=== PATIENT | female | born 1940 | race Caucasian/White ===

== ENCOUNTER → 2018-04-06 | Outpatient (CLI) | payer MEDICARE, OTHER ==
[~2018-04-06] MED LIST: AMLO5 PO; ATEN50 PO; Aspir 8181 MG PO; HYDCHL25 PO; LEVSOD100 PO; LEVSOD125 PO; LOSA50 PO; METO50 PO; Omeprazole20 M1 PO; SULTRIDS PO; VALA500 PO
[2018-04-06 17:32] LABS: Protein, Urine Random 477.3 mg/dL (0.0-11.9)
== END ==
LOC: LAB SHORT 16:49 → LAB 16:49
PROVIDERS: Internal Medicine
DX: N18.3 Chronic kidney disease, stage 3 (moderate) (principal)
CPT/HCPCS: 82570; 84156

== ENCOUNTER → 2018-06-06 | Outpatient (CLI) | payer MEDICARE, OTHER ==
[2018-06-06 14:33] LABS: Protein, Urine Quantitative 103.7 mg/dL (0.0-11.9)
[2018-06-06 14:44] LABS: Creatinine Urine 30.1 mg/dL (27.00-270.00)
== END | disposition home or self-care (01) ==
LOC: LAB 10:36 → LAB SHORT 10:36
PROVIDERS: Internal Medicine
DX: N18.3 Chronic kidney disease, stage 3 (moderate) (principal)
CPT/HCPCS: 81050; 82570; 84156

== ENCOUNTER → 2018-08-19 | Outpatient (CLI) | payer MEDICARE, OTHER ==
[~2018-08-19] MED LIST changes: +ATOR80 PO; +CARV3.125 PO; +CLOP75 PO
[2018-08-19 17:37] LABS: Protein, Urine Random 521.6 mg/dL (0.0-11.9)
== END | disposition home or self-care (01) ==
LOC: LAB 14:00 → LAB SHORT 14:00
PROVIDERS: Internal Medicine
DX: R80.8 Other proteinuria (principal)
CPT/HCPCS: 82570; 84156

== ENCOUNTER 2018-10-23 17:19 | Observation (INO) | payer MEDICARE, OTHER ==
[~2018-10-23] VITALS: Ht 160 cm; Wt 68.4 kg
[~2018-10-23 17:19] MED LIST changes: -ATOR80 PO; -CARV3.125 PO; -CLOP75 PO
[2018-10-23 18:01] LABS: BASOPHILS ABSOLUTE AUTO 0.08 K/mm3 (0.00-0.23); BASOPHILS PERCENT AUTO 1 % (0-2); EOSINOPHILS ABSOLUTE AUTO 0.28 K/mm3 (0.00-0.68); EOSINOPHILS PERCENT AUTO 4 % (0-6); Hematocrit 45.5 % (33.0-51.0); Hemoglobin 14.5 g/dL (11.5-16.0); IMMATURE GRAN ABSOLUTE AUTO 0.02 K/mm3 (0.00-0.10); IMMATURE GRAN PERCENT AUTO 0 % (0-1); LYMPHOCYTES ABSOLUTE AUTO 2.12 K/mm3 (0.84-5.20); LYMPHOCYTES PERCENT AUTO 26 % (21-46); MONOCYTES ABSOLUTE AUTO 0.82 K/mm3 (0.16-1.47); MONOCYTES PERCENT AUTO 10 % (4-13); Mean Corpuscular HGB 27.2 pg (26.0-34.0); Mean Corpuscular HGB Conc 31.9 g/dL (31.5-36.5); Mean Corpuscular Volume 85 fL (80-100); Mean Platelet Volume 10.7 fL (9.1-12.4); NEUTROPHILS ABSOLUTE AUTO 4.73 K/mm3 (1.96-9.15); NEUTROPHILS PERCENT AUTO 59 % (41-73); Platelet Count 314 K/mm3 (150-400); RDW Coefficient Variation 14.6 % (11.7-14.2); RDW Standard Deviation 45.1 fL (35.1-46.3); Red Blood Cell Count 5.34 M/mm3 (3.80-5.20); White Blood Cell Count 8.05 K/mm3 (4.00-11.30)
[2018-10-23 18:33] LABS: Albumin, Blood 3.6 g/dL (3.4-5.0); Albumin/Globulin Ratio 0.9 (0.8-1.8); Bilirubin, Total 0.4 mg/dL (0.1-1.0); Bun/Creatinine Ratio 16.2 (12.0-20.0); Calcium, Blood 9.6 mg/dL (8.5-10.1); Creatinine, Blood 1.17 mg/dL (0.40-1.00); Potassium, Blood 4.1 mmol/L (3.5-5.5); Total Protein, Blood 7.6 g/dL (6.4-8.2)
[2018-10-23] MEDS ORDERED: CARV3.125 PO (20:22)
--- NOTE | 2018-10-24 04:48 | NUR ---
SHIFT SUMMARY PT NEW ED ADMIT THIS EVENING. PT HAS EXPRESSIVE APHASIA AND HAS A DIFFICULT TIME FINDING HER WORDS. PT HAS HAD TWO STROKES IN THE PAST AND HAS RIGHT SIDED WEAKNESS FROM THIS. PT IS ABLE TO AMBULATE W/ 1 PERSON ASSIST AND A FWW. NO NEW DEFICITS AT THIS TIME EXCEPT THE APHASIA. PT IS PLEASANT AND COOPERATIVE. SLEPT WELL AFTER ADMISSION. PT REPORTED THAT SHE HAD A HEADACHE IN THE ER THAT HAD RESOLVED BY THE TIME SHE GOT TO THE FLOOR. DENIES ANY OTHER PAIN OR DISCOMFORT. MRI SCREENING FORM FILLED OUT AND FAXED. WILL CONTINUE TO MONITOR AND REPORT TO DAY RN.
--- NOTE | 2018-10-24 16:05 | NUR ---
PATIENT HAS ASKED MULTIPLE TIMES ABOUT BEING DISCHARGED "NOTHING IS BEING DONE." REFUSES O.T. REFUSES SPEECH EVAL AND STS "SHE SHOULD BE A USED GROUND WIRER." AFTER DOES EVAL USES DERROGATORY WORD TO DESCRIBE HIM TO THIS RN. REQUESTS PATIENT ADVOCATE, АЛЕКСАНДР, WHO IS IN AT THIS TIME TALKING TO HIM. DR. RODRIGEZ AWARE DOES NOT CARE IF WANTS TO DO SURGERY HE WILL NOT OK IT HE WANTS A SECOND OPINION. PER DR. RODRIGEZ WILL "WRITE ORDERS IN 1/2 HOUR." PATIENT UNSTEADY ON FEET WITH ONE PERSON ASSIST TO BATHROOM. WHEN ASSISTED TO BATHROOM STS " WHY ARE YOU WALKING LIKE THAT, YOU DIDN'T AT HOME." THOR.
[2018-10-24] MEDS ORDERED: ATOR80 PO (17:36)
[2018-10-24] MEDS ORDERED: CLOP75 PO (17:36)
--- NOTE | 2018-10-24 17:53 | NUR ---
REVIEW D'C W/S.O. AWARE TO SANFORIZING MACHINE OPERATOR RX X 2 AT [facility].AWARE EVEREEN WILL CALL THEM TO SET UP FOLLOW UP APPT. AWARE CAN RETURN TO E.R. IF ANY PROBLEMS. SIGNED MEDICAL RECORDS RELEASE AND HAS IMAGING RESULTS. ANSWER ALL QUESTIONS. IN W/C W/CD STORAGE AND MATERIALS MAKE UP HELPER AND S.O.
== END 2018-10-24 17:47 | disposition home or self-care (01) ==
LOC: ER 17:19 → MEDS 17:20 → ICUW 17:20 → MEDS 22:40
PROVIDERS: Emergency Medicine; ADMIT Student in an Organized Health Care Education/Training Program
DX: R47.01 Aphasia (principal); I65.23 Occlusion and stenosis of bilateral carotid arteries; I65.02 Occlusion and stenosis of left vertebral artery; I69.351 Hemiplegia and hemiparesis following cerebral infarction affecting right dominant side; I12.9 Hypertensive chronic kidney disease with stage 1 through stage 4 chronic kidney disease, or unspecified chronic kidney disease; N18.3 Chronic kidney disease, stage 3 (moderate); E03.9 Hypothyroidism, unspecified; E78.5 Hyperlipidemia, unspecified; Z87.891 Personal history of nicotine dependence; Z79.899 Other long term (current) drug therapy; Z79.82 Long term (current) use of aspirin
CPT/HCPCS: 36415; 70450; 70496; 70498; 70551; 80053; 85025; 92523; 93005; 93010; 93306; 96372; 97116; 97162; 99285-25; A9270; G0378; J1650; Q9967

== ENCOUNTER 2019-04-17 09:45 | Inpatient (IN) | payer MEDICARE, OTHER ==
[~2019-04-17] VITALS: Ht 162.6 cm; Wt 63.5 kg
[~2019-04-17 09:45] MED LIST changes: +ATOR80 PO; +CARV3.125 PO; +CLOP75 PO
[2019-04-17] MEDS ORDERED: CYCL10 PO (10:07)
[2019-04-17] MEDS ORDERED: LANS15EC PO (10:07)
[2019-04-17] MEDS ORDERED: ACET325 PO (10:08)
[2019-04-17] MEDS ORDERED: TRAM50 PO (10:08)
[2019-04-17 10:35] LABS: BASOPHILS ABSOLUTE AUTO 0.06 K/mm3 (0.00-0.23); BASOPHILS PERCENT AUTO 1 % (0-2); EOSINOPHILS ABSOLUTE AUTO 0.13 K/mm3 (0.00-0.68); EOSINOPHILS PERCENT AUTO 1 % (0-6); Hematocrit 36.8 % (33.0-51.0); Hemoglobin 11.8 g/dL (11.5-16.0); IMMATURE GRAN ABSOLUTE AUTO 0.05 K/mm3 (0.00-0.10); IMMATURE GRAN PERCENT AUTO 1 % (0-1); LYMPHOCYTES PERCENT AUTO 16 % (21-46); MONOCYTES ABSOLUTE AUTO 1.03 K/mm3 (0.16-1.47); MONOCYTES PERCENT AUTO 9 % (4-13); Mean Corpuscular HGB 26.3 pg (26.0-34.0); Mean Corpuscular HGB Conc 32.1 g/dL (31.5-36.5); Mean Corpuscular Volume 82 fL (80-100); NEUTROPHILS ABSOLUTE AUTO 7.93 K/mm3 (1.96-9.15); NEUTROPHILS PERCENT AUTO 72 % (41-73); Platelet Count 733 K/mm3 (150-400); RDW Standard Deviation 41.1 fL (35.1-46.3); Red Blood Cell Count 4.48 M/mm3 (3.80-5.20)
[2019-04-17 10:54] LABS: Albumin, Blood 2.3 g/dL (3.4-5.0); Bilirubin, Total 0.3 mg/dL (0.1-1.0); Bun/Creatinine Ratio 17.1 (12.0-20.0); Calcium, Blood 9.1 mg/dL (8.5-10.1); Creatinine, Blood 1.4 mg/dL (0.40-1.00); Potassium, Blood 3.7 mmol/L (3.5-5.5)
[2019-04-17 10:56] LABS: Albumin/Globulin Ratio 0.6 (0.8-1.8); Globulin, Blood 3.9 g/dL (2.2-4.0); Total Protein, Blood 6.2 g/dL (6.4-8.2)
[2019-04-17 11:25] LABS: Source, Urine Catheter
[2019-04-17 11:48] LABS: Bilirubin, Urine Neg (Neg); Blood, Urine Neg (Neg); Glucose Qualitative, Urine Neg (Neg); Ketones, Urine Neg (Neg); Leukocyte Esterase, Urine Neg (Neg); Nitrite, Urine Neg (Neg); Protein, Urine 3+ (Neg); Specific Gravity, Urine 1.025 (1.003-1.022); Urobilinogen, Urine NORM (Normal)
[2019-04-17 12:07] LABS: Appearance, Urine Hazy (Clear); Color, Urine Yellow (P-Yellow)
[2019-04-17 12:09] LABS: Amorphous Mod (0-Heavy); Bacteria Many /hpf; Red Blood Cells, Urine 0-2 /hpf (0-2); Squamous Epithelial Cells Few /hpf (Few)
[2019-04-17] MEDS ORDERED: Cyclobenzaprine5 MG PO (13:03)
--- NOTE | 2019-04-17 15:34 | NUR ---
PT ADMITTED. PT ADMITTED AT 1515. FOAM PLACED TO BOTTOM WOUND. BREIF APPLIED. DNR BND PLACED & VERIFIED BY CRUZ WEEKS RN. PT REPOSITIONED. AWAITING FAMILY TO ARRIVE TO START PT ADMISSION.
--- NOTE | 2019-04-17 17:39 | NUR ---
SHIFT SUMMARY PICS TAKEN OF SACRAL & R HIP WOUNDS. FOAMS PLACED TO R HIP, SACRUM, AND BILATERAL HEELS. FAMILY AT BEDSIDE. PT LETHARGIC, BUT WAKES WHEN REPOSITIONED. NO NEURO CHANGE AT THIS TIME. PT NPO AT THIS TIME ORAL CARE COMPLETED BY THIS RN AND BY FAMILY. NO OTHER CHANGES IN ASSESSMENT SINCE ADMIT. VSS. WILL CONTINUE TO MONITOR UNTIL TURNOVER IS COMPLETE.
--- NOTE | 2019-04-17 20:44 | NUR ---
BLADDER SCAN/CHI PLACED 14F CHI PLACED FOR BLADDER SCAN OF 907ML IN BLADDER & LOWER ABD TENDER TO PALPATION. URINE SAMPLE COLLECTED & SENT PER PROTOCAL. 500ML OUT @THIS TIME WILL CONTINUE TO MONITOR PT. CALL LIGHT IN REACH.
[2019-04-17 21:12] LABS: Source, Urine Catheter
[2019-04-17 21:15] LABS: Bilirubin, Urine Neg (Neg); Blood, Urine Neg (Neg); Glucose Qualitative, Urine Neg (Neg); Ketones, Urine Neg (Neg); Leukocyte Esterase, Urine Neg (Neg); Nitrite, Urine Neg (Neg); Protein, Urine 4+ (Neg); Specific Gravity, Urine 1.025 (1.003-1.022); Urobilinogen, Urine NORM (Normal)
[2019-04-17 21:22] LABS: Appearance, Urine Hazy (Clear); Color, Urine Yellow (P-Yellow)
[2019-04-17 21:23] LABS: Amorphous Light (0-Heavy); Bacteria Many /hpf; Red Blood Cells, Urine 0-2 /hpf (0-2); Squamous Epithelial Cells Rare /hpf (Few); White Blood Cells, Urine 0-2 /hpf (0-5)
[2019-04-18 05:15] LABS: BASOPHILS ABSOLUTE AUTO 0.06 K/mm3 (0.00-0.23); BASOPHILS PERCENT AUTO 1 % (0-2); EOSINOPHILS ABSOLUTE AUTO 0.09 K/mm3 (0.00-0.68); EOSINOPHILS PERCENT AUTO 1 % (0-6); Hematocrit 35.8 % (33.0-51.0); Hemoglobin 11.2 g/dL (11.5-16.0); IMMATURE GRAN ABSOLUTE AUTO 0.05 K/mm3 (0.00-0.10); IMMATURE GRAN PERCENT AUTO 1 % (0-1); LYMPHOCYTES PERCENT AUTO 13 % (21-46); MONOCYTES ABSOLUTE AUTO 0.65 K/mm3 (0.16-1.47); MONOCYTES PERCENT AUTO 6 % (4-13); Mean Corpuscular HGB 25.6 pg (26.0-34.0); Mean Corpuscular HGB Conc 31.3 g/dL (31.5-36.5); Mean Corpuscular Volume 82 fL (80-100); Mean Platelet Volume 10.2 fL (9.1-12.4); NEUTROPHILS ABSOLUTE AUTO 8.28 K/mm3 (1.96-9.15); NEUTROPHILS PERCENT AUTO 79 % (41-73); Platelet Count 738 K/mm3 (150-400); RDW Coefficient Variation 14.1 % (11.7-14.2); RDW Standard Deviation 41.7 fL (35.1-46.3); Red Blood Cell Count 4.37 M/mm3 (3.80-5.20); White Blood Cell Count 10.43 K/mm3 (4.00-11.30)
[2019-04-18 05:39] LABS: Albumin, Blood 2.3 g/dL (3.4-5.0); Albumin/Globulin Ratio 0.6 (0.8-1.8); Bilirubin, Total 0.3 mg/dL (0.1-1.0); Creatinine, Blood 1.28 mg/dL (0.40-1.00); Globulin, Blood 3.8 g/dL (2.2-4.0); Potassium, Blood 3.8 mmol/L (3.5-5.5); Total Protein, Blood 6.1 g/dL (6.4-8.2)
--- NOTE | 2019-04-18 06:26 | NUR ---
SHIFT SUMMARY PT ALERT TO VERBAL STIMULI. ABLE TO ANSWER YES/NO QUESTIONS & CAN STATE NAME. DAUGHTER @BEDSIDE T/O NIGHT STATES PT HAS IMPROVED IN MENTATION SINCE YESTERDAY & IS MORE VERBAL. PT HAS EXPRESSIVE APHASIA. VSS. TELE IN PLACE RUNNING ST c PVC'S HR 101. NO S/S OF DYSPNEA OR N/V. MANY NON-VERBAL S/S OF PAIN INCLUDING: MOANING, GRIMACING, RESTLESS LEGS & STATES "PAIN, PAIN." RECIEVED ORDER FOR FENTANYL FROM DR FONSECA & PT HAS BEEN MEDICATED 2X W/MILD RELIEF, STILL MOANING & STATING PAIN THIS AM BUT UNABLE TO STATE WHERE PAIN IS LOCATED, REPOSITIONED & I WILL PASS INFO TO ONCOMING NURSE. CHI PLACED LAST NIGHT, READ PREVIOUS NOTE, IS PATENT & DRAINING DARK ORANGE URINE. PT NPO PER ORDERS. NS RUNNING @75ML/HR. CALL LIGHT IN REACH. WCTM.
--- NOTE | 2019-04-18 10:09 | NUR ---
PATIENT COULD NOT TOLERATE LAYING FLAT FOR MRI.
--- NOTE | 2019-04-18 14:45 | NUR ---
Pt resting in bed and denies pain at this time. Difficult to assess Pt's understanding and orientation due to significant expressive aphasia. Pt appears comfortable with no S/S of distress at this time. Family at bedside. Bedside RN comes in to offer Ativan for MRI shortly. Engaged in therapeutic discussion regarding goals of care. Listened as José Miguel reports being Pt's primary caregiver with daughters volunteering their assistance often. Listened as expresses concerns wether Pt will recover from this event. Discussed options to considered. reports if she remains in her current condition he is not able to provide care for Pt. Educated on the possibility of needing to hire caregivers or considering higher level of care. Educated family on the possibility of considering hospice if Pt does not improve. reports wishes are to take things one day at a time and would like to give Pt a few days to show improvement. Family has POLST partialy completed with Pt's information at top still incomplete. Family reports plan to finish later today. Pt transport arrives to take Pt for MRI. This RN ended visit. Spoke with Pt's bedside RN Carin and discussed case. Spoke with [place] Customer Care Consultant and Inspector Type Kay and discussed case. Reported family's wishes to learn more about the medicaid process. Reported that family may be more receptive to hospice if Pt does not improve and hearing from Dr Engel. Palliative Care will remain available for therapeutic visits.
--- NOTE | 2019-04-18 17:45 | NUR ---
Inital spiritual care note: I met with Mrs. Mulligan's dtr at bedside. I was tasked per admit trigger to encourage family to complete POLST reflecting pt's code status change. Gently explained this document to dtr, and the two of us completed POLST. DNR/DNI Limited interventions. Pt's spouse to sign as MPOA when he returns. Dtr states there is strong family support. She was tearful and responded well to gentle genetic counselor and affirmation. Non-jewish. I will remain available.
--- NOTE | 2019-04-18 17:56 | NUR ---
PATIENT IS ALERT. PATIENT IS NOT ORIENTED. SHE IS VERBAL BUT ANSWERS INAPROPRIATELY. FAMILY HAS BEEN AT THE BEDSIDE ALL THROUGHOUT THE DAY. PATIENT HAD AN MRI DONE TODAY, ATIVAN WAS NEEDED TO ALLOW THE PATIENT TO LAY FLAT. 2MG IV MORPHINE FOR PAIN NEEDED. THE PATIENT'S FAMILY ALERTS THE RN WHEN THE PATIENT BECOMES RESTLESS. PALLIATIVE CARE IS INVOLVED. WILL CONTINUE TO MONITOR
--- NOTE | 2019-04-18 17:58 | NUR ---
Received report family had questions regarding hospice. Arrived to room and had joint visit with Building Maintenance Repairer Kay. Answered questions and concerns regarding hospice philosophy. Kay provides information and resources for cargivers. Family reports needing time to process information. No other concerns reported at this time. Provided Palliative Care contact information and instructed to call with any questions or concerns. Palliative Care will remain available.
--- NOTE | 2019-04-19 04:43 | NUR ---
SHIFT SUMMARY ADMITTED FOR ACUTE METABOLIC ENCEPHALOPATHY. DNR CODE. PT IS NPO. AMS, REQUIRED DEEP STERNAL RUB IN ER FOR RESPONSE. BARELY VERBAL - YES/NO ANSWERS THAT MAY NOT BE APPROPRIATE. ST/PT/OT CONSULTS MAY BE NEEDED. SHE IS SOMEWHAT ALERT, BUT NOT ORIENTED. CHI IS IN PLACE, BUT THERE IS LITTLE OUTPUT. NS IS INFUSING @ 75 ML/HR. TELEMETRY IS IN PLACE: TACHY @ 105 BPM. IV ANTIBIOTICS ARE SCHEDULED. MEDICATED ONE TIME FOR PAIN THIS SHIFT. PALLIATIVE CARE IS INVOLVED. HX: CVA W/ RT DEFICITS, EXPRESSIVE APHASIA, HTN, CONTRACTURE RT ARM, CKD3, HYPOTHYROID, HERPES ZOSTER. BEDREST THIS SHIFT, UNDIRECTABLE.
--- NOTE | 2019-04-19 18:41 | NUR ---
SHIFT SUMMARY- PT IS PLESANT AND COOPERATIVE. PT WORKED WITH PT, AND OT THIS MORNING. SHE WAS SEEN BY SPEECH THERAPY AND PUT ON ASPRIATIONS PRECAUTIONS AND ORDERED A PUREED DIET. SHE IS EATING SMALL AMOUNTS. PT WAS UP IN THE CHAIR THIS AFTERNOON FOR SEVERAL HOURS. SHE IS ABLE TO USE SOME WORDS BUT IS SLOW TO RESPOND AND HAS DIFFICULTY EXPRESSING HERSELF. POSSIBLE DISCHARGE TOMORROW.
--- NOTE | 2019-04-19 18:51 | NUR ---
Initial spiritual care note: Met with pt's spouse, José Miguel at bedside. He was initially upbeat and chatty. Once rapport established he expressed fears and concerns about losing Carolina. They have been 63 years. He has taken care of her these past few years with great love and dedication. Ten is deeply concerned about Mariel's salvation because "She is Church and catholics don't go to [facility]." I allowed him emotional space to cry and vent. On one hand, Ten verbalizes the understanding that his is nearing end-of-life. On the other hand, he tells me he is pleased that she is showing signs of returning to baseline. He is well suported and loved by adult children. And he responded well to emotional affirmation and gentle ip counsel. We prayed together for God's mercy at his request. I will remain available.
--- NOTE | 2019-04-20 04:58 | NUR ---
SHIFT SUMMARY ADMITTED FOR ACUTE ENCEPHALOPATHY. RECENT MCA STROKE. DNR CODE. PT/OT/ST EVALS & TX. ASPIRATION/SWALLOW PRECAUTIONS: MEDS CRUSHED IN PUDDING, NO STRAWS, SIPS OF THIN LIQUIDS. TELEMETRY IS MONITORING: NSR @ 90 BPM. NO IV ACCESS, CHI DC'D ON PREVIOUS SHIFT. MORE RESPONSIVE AND ALERT THIS SHIFT. RA, ATTENDS IN PLACE, 2 ASSIST W/GAIT TO CHAIR, PUREE DIET. LIVES W/ WHO CARES FOR HER. PALLIATIVE CARE IS INVOLVED. HOPEFUL FOR DC HOME. HX: MULTIPLE CVA'S - RT HEMIPARESIS & EXPRESSIVE APHASIA, HTN, HYPERLIPIDEMIA, HYPOTHYROID, DEMENTIA, SHINGLES. I DID PERFORM A BLADDER SCAN DUE TO LITTLE URINE OUTPUT, REVEALING 281 CC'S URINE. SHE HAS HAD LITTLE INPUT SINCE ADMIT. I WILL PASS THAT INFORMATION ON TO DAY SHIFT NURSE.
--- NOTE | 2019-04-20 14:37 | NUR ---
PT DISCHARGED AT 1347 WITH TO TRANSPORT. PT AOX2 AND COOPERATIVE OF CARE. ALL PAPERWORK REVIEWED AND EDUCATIONAL MATERIAL SENT WITH PT. PHYSICAL THERAPY WAS ABLE TO WORK WITH PT'S ON HOME TRANSFERS PRIOR TO DISCHARE. ALL PERSONAL BELONINGS WERE TAKEN. NO DISTRESS NOTED. THIS GRINDING ROOM INSPECTOR ESCORTED DOWN VIA WHEEL CHAIR.
== END 2019-04-20 14:08 | disposition home or self-care (01) | DRG 64 ==
LOC: ER 09:45 → MEDS 12:49
PROVIDERS: Emergency Medicine; Internal Medicine; ADMIT Internal Medicine
DX: I63.512 Cerebral infarction due to unspecified occlusion or stenosis of left middle cerebral artery (principal); E43 Unspecified severe protein-calorie malnutrition; G81.91 Hemiplegia, unspecified affecting right dominant side; Z51.5 Encounter for palliative care; Z87.891 Personal history of nicotine dependence; N18.3 Chronic kidney disease, stage 3 (moderate); I12.9 Hypertensive chronic kidney disease with stage 1 through stage 4 chronic kidney disease, or unspecified chronic kidney disease; E78.5 Hyperlipidemia, unspecified; E03.9 Hypothyroidism, unspecified; I73.9 Peripheral vascular disease, unspecified; E88.09 Other disorders of plasma-protein metabolism, not elsewhere classified; D47.3 Essential (hemorrhagic) thrombocythemia; F01.50 Vascular dementia, unspecified severity, without behavioral disturbance, psychotic disturbance, mood disturbance, and anxiety; R13.12 Dysphagia, oropharyngeal phase; R82.81 Pyuria
CPT/HCPCS: 36415; 70450; 70551; 71045; 80053; 81001; 85025; 87086; 92507; 92523; 92610; 93005; 93010; 96361; 96365; 97162; 97166; 97530; 97535; 99285-25; A9270-GY; J0696; J2060; J2270; J3010; J7030; P9612

== ENCOUNTER 2019-04-28 11:34 | Inpatient (IN) | payer MEDICARE, OTHER ==
[~2019-04-28] VITALS: Ht 152.4 cm; Wt 61.2 kg
[~2019-04-28 11:34] MED LIST changes: +ACET325 PO; -AMLO5 PO; -CARV3.125 PO; +CYCL10 PO; -HYDCHL25 PO; +LANS15EC PO; -LEVSOD100 PO
[2019-04-28 12:34] LABS: Hematocrit 25.5 % (33.0-51.0); Hemoglobin 7.7 g/dL (11.5-16.0); Mean Corpuscular HGB 25.2 pg (26.0-34.0); Mean Corpuscular HGB Conc 30.2 g/dL (31.5-36.5); Mean Corpuscular Volume 83 fL (80-100); Mean Platelet Volume 11.7 fL (9.1-12.4); NRBC ABSOLUTE 0.07 K/mm3 (0.00-0.02); NRBC Auto 0.2 /100 WBC (0.0-0.2); Platelet Count 558 K/mm3 (150-400); RDW Coefficient Variation 15.4 % (11.7-14.2); RDW Standard Deviation 45.8 fL (35.1-46.3); Red Blood Cell Count 3.06 M/mm3 (3.80-5.20); White Blood Cell Count 31.19 K/mm3 (4.00-11.30)
[2019-04-28 12:50] LABS: Albumin, Blood 2.1 g/dL (3.4-5.0); Albumin/Globulin Ratio 0.6 (0.8-1.8); Bilirubin, Total 0.5 mg/dL (0.1-1.0); Bun/Creatinine Ratio 16.1 (12.0-20.0); Calcium, Blood 8.8 mg/dL (8.5-10.1); Creatinine, Blood 1.74 mg/dL (0.40-1.00); Globulin, Blood 3.8 g/dL (2.2-4.0); Potassium, Blood 4.3 mmol/L (3.5-5.5); Total Protein, Blood 5.9 g/dL (6.4-8.2)
[2019-04-28 13:01] LABS: BAND PERCENT MAN 1 % (0-8); BASOPHILS PERCENT MAN 0 % (0-2); EOSINOPHILS PERCENT MAN 0 % (0-6); LYMPHOCYTES ABSOLUTE MAN 2.18 K/mm3 (0.84-5.20); LYMPHOCYTES PERCENT MAN 7 % (21-46); MONOCYTES ABSOLUTE MAN 1.55 K/mm3 (0.16-1.47); MONOCYTES PERCENT MAN 5 % (4-13); NEUTROPHILS ABSOLUTE MAN 27.44 K/mm3 (1.96-9.15); SEG NEUTROPHILS PERCENT MAN 87 % (41-73); TOTAL CELLS COUNTED 100
[2019-04-28] MEDS ORDERED: CARV3.125 PO (13:43)
[2019-04-28] MEDS ORDERED: AMLO10 PO (13:43)
[2019-04-28] MEDS ORDERED: LEVSOD100 PO (13:43)
[2019-04-28] MEDS ORDERED: TRAM50 PO (13:44)
[2019-04-28] MEDS ORDERED: HYDCHL12.5 PO (13:45)
[2019-04-28] MEDS ORDERED: Cyclobenzaprine5 MG PO (14:10)
--- NOTE | 2019-04-28 19:37 | NUR ---
PT ARRIVED TO THE MEDICAL FLOOR FROM THE ER VIA STRETCHER, PT AT OPENS EYES BUT IS MOSTLY NON VERBAL AT THIS TIME, PTS FAMILY IS AT THE BEDSIDE, THE PT IS RECIEVING PRBC'S AT THIS TIME APPEARS TO BE TOLERATING IT WELL, THE PTS PROTONIX DRIP WAS PUT ON HOLD DUE TO LIMITED IV ACCESS, ATTEMPTS TO START ANOTHER IV FAILED AND IT WAS DECIDED TO INFUSE THE PTS ABX AND BLOOD THEN CONTINUE WITH THE PROTINX, THIS DECISION WAS MADE AFTER CONSULTING WITH THE HEALTH CARE LIAISON SALLEY, REPORT GIVEN TO NOC RN AT THIS TIME, PT AND FAMILY ORIENTED TO THE ROOM LAYOUT AND CALL SYSTEM
[2019-04-28 22:18] LABS: Hemoglobin 10.1 g/dL (11.5-16.0)
[2019-04-29 00:28] LABS: Source, Urine Catheter
[2019-04-29 00:32] LABS: Appearance, Urine Clear (Clear); Bilirubin, Urine Neg (Neg); Blood, Urine 1+ (Neg); Color, Urine Amber (P-Yellow); Glucose Qualitative, Urine Neg (Neg); Ketones, Urine Neg (Neg); Leukocyte Esterase, Urine Neg (Neg); Nitrite, Urine Neg (Neg); Protein, Urine 3+ (Neg); Specific Gravity, Urine 1.025 (1.003-1.022); Urobilinogen, Urine NORM (Normal)
[2019-04-29 00:40] LABS: Amorphous Light (0-Heavy); Bacteria Many /hpf; Red Blood Cells, Urine 0-2 /hpf (0-2); Squamous Epithelial Cells Not Seen /hpf (Few); Transitional Epithelial Cells Few /hpf (0-Rare)
--- NOTE | 2019-04-29 05:26 | NUR ---
SHIFT SUMMARY ADMITTED FOR GI BLEED. DNR CODE. 2 UNITS OF BLOOD GIVEN SINCE ADMIT. PT IS ON BEDREST, RT SIDE HEMIPLEGIA. PT IS NPO, DYSPHAGIA. IV ANTIBIOTICS ARE SCHEDULED. PROTONIX IS INFUSING. D5 1/2 NS W/KCL IS INFUSING. CHI CATHETER PUT IN THIS SHIFT. HEEL PROTECTORS ARE IN PLACE. MARCI HOSE IS IN PLACE. MEPILEX ON TWO PRESSURE ULCERS. ONE ON COCCYX AND ONE ON RT HIP. WATCHING H& H LABS AND WBC COUNT. HX: CVA'S, INFARCT DEMENTIA, HTN, HYPERLIPIDEMIA, CKD3, HYPOTHYROID. AND DAUGHTER ARE CAREGIVERS, THEY ARE CURRENTLY DECIDING BETWEEN SUPPORTIVE CARE AND HOSPICE. FAMILY HAS PREVIOUSLY DECLINED HH & HOSPICE.
[2019-04-29 06:27] LABS: Hematocrit 28.8 % (33.0-51.0); Hemoglobin 9.6 g/dL (11.5-16.0); Mean Corpuscular HGB 27.4 pg (26.0-34.0); Mean Corpuscular HGB Conc 33.3 g/dL (31.5-36.5); Mean Corpuscular Volume 82 fL (80-100); Mean Platelet Volume 11.5 fL (9.1-12.4); NRBC ABSOLUTE 0.18 K/mm3 (0.00-0.02); NRBC Auto 0.8 /100 WBC (0.0-0.2); Platelet Count 286 K/mm3 (150-400); RDW Coefficient Variation 14.8 % (11.7-14.2); RDW Standard Deviation 42.8 fL (35.1-46.3); Red Blood Cell Count 3.51 M/mm3 (3.80-5.20); White Blood Cell Count 23.25 K/mm3 (4.00-11.30)
[2019-04-29 06:47] LABS: Albumin, Blood 1.6 g/dL (3.4-5.0); Albumin/Globulin Ratio 0.5 (0.8-1.8); Bilirubin, Total 0.9 mg/dL (0.1-1.0); Bun/Creatinine Ratio 16.6 (12.0-20.0); Calcium, Blood 7.6 mg/dL (8.5-10.1); Creatinine, Blood 1.69 mg/dL (0.40-1.00); Globulin, Blood 3.2 g/dL (2.2-4.0); Potassium, Blood 3.4 mmol/L (3.5-5.5); Total Protein, Blood 4.8 g/dL (6.4-8.2)
--- NOTE | 2019-04-29 13:23 | NUR ---
SHIFT SUMMARY PT RESPONDS TO MOVEMENT BUT IS NOT ORIENTED. SHE HAS BEEN RESTING IN BED WITH HER EYES CLOSED ALL MORNING. SHE HAS NO S/S OF PAIN OR DISCOMFORT. PT HAS BEEN TURNED AND RE-POSITIONED Q 2. CHI IS PATENT. PT REMAINS NPO. MARCI HOSE ARE IN PLACE WITH FOAM BOOTIES AND LEGS FLOATED ON PILLOWS. IV FLUIDS INFUSING ORDERED WITH NO ISSUES OBSERVED. FAMILY REMAINS AT BEDSIDE. PT IS NOT ABLE TO MAKE HER NEEDS KNOWN AND REQUIRES FREQUENT ROUNDING. PALLIATIVE CARE NURSE MET WITH FAMILY TODAY AND THEY ARE DISCUSSING THE POSSIBLITY OF COMFORT OR HOSPICE CARE. PT IS RESTING IN BED. WILL REPORT TO ONCOMING NURSE.
[2019-04-29 14:18] LABS: Hematocrit 27.3 % (33.0-51.0)
--- NOTE | 2019-04-29 14:30 | NUR ---
ASSUMED CARE AT 1400 FROM GENNARO BANDA. PT MOANING AND GRIMACING, IV MORPHINE GIVEN, PO FLEXERIL TO BE GIVEN PER EMAR. FAMILY AT BEDSIDE, WILL MONITOR
--- NOTE | 2019-04-29 19:12 | NUR ---
Met wit patient and family today. Pt moaning at time then drifts off. Symptom assessment pt denies headache states yes to neck and back hurting. Pt neck very tight and postive jvd. dyring out with repositionig. Family relays she take routine mucle relaxants and gets botox injections. Patients daughters had many questions about hospice. They have never expericnce hospitce. Review of symptom managment and confort and natural trajectoy of end of life for their mother. They are concerned their father wont accept hospice. Advised moth at risk for suffering. They will speak as a family and get their father to accept a plan. Review with nursing medication need. Request starting her home meds given sublingual and prn breakthrough meds. repeat visits pt rsting comfortable. Family at bedside visiting and went to dinner. will follow up tomorrow.
--- NOTE | 2019-04-30 04:16 | NUR ---
SHIFT SUMMARY PATIENT HAD NO ACUTE CHANGES OBSERVED. AXO TO SELF/FAMILY. BEDFAST. CHI PATENT AND DRAINING. PIV REMAINS INTACT. IV PROTONIX INFUSING AT 10 mL/HR CONTINUOUS.IV ABX INFUSED. FAMILY REPORTED MUSCLE SPASMS X TWO AND FLEXERIL GIVEN PER EMAR CRUSHED IN APPLESAUCE. VSS/AFEBRILE. NO S/SX OF N/V OR SOB. FAMILY MEMBER STAYS T/O SHIFT. CALL LIGHT IN REACH. BED IN LOWEST POSITION. WILL CONTINUE TO MONITOR UNTIL DAY SHIFT NURSE ASSUMES CARE.
[2019-04-30 05:55] LABS: BASOPHILS ABSOLUTE AUTO 0.05 K/mm3 (0.00-0.23); BASOPHILS PERCENT AUTO 0 % (0-2); EOSINOPHILS ABSOLUTE AUTO 0.02 K/mm3 (0.00-0.68); EOSINOPHILS PERCENT AUTO 0 % (0-6); Hematocrit 31.2 % (33.0-51.0); Hemoglobin 10.4 g/dL (11.5-16.0); IMMATURE GRAN ABSOLUTE AUTO 0.29 K/mm3 (0.00-0.10); IMMATURE GRAN PERCENT AUTO 1 % (0-1); LYMPHOCYTES ABSOLUTE AUTO 1.67 K/mm3 (0.84-5.20); LYMPHOCYTES PERCENT AUTO 8 % (21-46); MONOCYTES ABSOLUTE AUTO 1.53 K/mm3 (0.16-1.47); MONOCYTES PERCENT AUTO 8 % (4-13); Mean Corpuscular HGB 27.2 pg (26.0-34.0); Mean Corpuscular HGB Conc 33.3 g/dL (31.5-36.5); Mean Corpuscular Volume 82 fL (80-100); Mean Platelet Volume 11.2 fL (9.1-12.4); NEUTROPHILS ABSOLUTE AUTO 16.46 K/mm3 (1.96-9.15); NEUTROPHILS PERCENT AUTO 82 % (41-73); NRBC ABSOLUTE 0.06 K/mm3 (0.00-0.02); NRBC Auto 0.3 /100 WBC (0.0-0.2); Platelet Count 192 K/mm3 (150-400); RDW Coefficient Variation 15.1 % (11.7-14.2); Red Blood Cell Count 3.82 M/mm3 (3.80-5.20); White Blood Cell Count 20.02 K/mm3 (4.00-11.30)
[2019-04-30 06:13] LABS: Bun/Creatinine Ratio 14.6 (12.0-20.0); Calcium, Blood 7.4 mg/dL (8.5-10.1); Creatinine, Blood 1.57 mg/dL (0.40-1.00); Potassium, Blood 3.5 mmol/L (3.5-5.5)
--- NOTE | 2019-04-30 14:44 | NUR ---
PT CHANGED TO COMFORT CARE STATUS, TELE DISCONTINUED, IV'S FAILED THIS AM AND NOT REPLACED, FAMILY AT BEDSIDE, COMFORT CARE CART ORDERED. FENTANYL PATCH PLACED TO LEFT UPPER ARM. PT IS QUIET AND RESTING COMFORTABLY AT THIS TIME. WILL MONITOR.
--- NOTE | 2019-04-30 14:46 | NUR ---
PT CHANGED TO COMFORT CARE, TELE DISCONTINUED, IV'S FAILED THIS AM AND NOT REPLACED. FENTANLY PATCH PLACED TO DORA. CHI CATH PATENT AND DRAINING. FAMILY AT BEDSIDE AND COMFORT CARE CART ORDERED. PT QUIET AND RESTING COMFORTABLY AT THIS TIME. WILL CONTINUE TO MONITOR
--- NOTE | 2019-04-30 19:59 | NUR ---
pt on comfort only multiple visits today for symptom managment. advised family pt needs some sleep. oral mucosa improved. comfort blanket placed, supportive care for family
--- NOTE | 2019-05-01 03:31 | NUR ---
SHIFT SUMMARY PATIENT IS ON COMFORT CARE. AXO TO SELF AND FAMILY. FAMILY PRESENT T/O SHIFT. CHI PATIENT AND DRAINING. NO S/SX OF PAIN, SOB, AND N/V. RESTING COMFORTABLY ON ROOM AIR. CALL LIGHT IN REACH. BED IN LOWEST POSITION. WILL CONTINUE TO MONITOR UNTIL DAY SHIFT NURSE ASSUMES CARE.
--- NOTE | 2019-05-01 10:50 | NUR ---
Comfort Care Visit: Pt resting in bed and denies pain at this time. Family at bedside and answered questions regarding hospice. Family reports still considering hospice agency options. No other concerns reported at this time. Palliative Care will remain available.
--- NOTE | 2019-05-02 03:50 | NUR ---
SUMMARY: PT REMAINS ON COMFORT CARE W/ AT BEDSIDE. SHE IS WAKEFUL TO VOICE AND IS ABLE TO ANSWER YES/NO Q'S. SHE COULDN'T DESCRIBE SPECIFICS OF PAIN BUT STATED "YES" TO GENERAL DISCOMFORT. SHADI RECIEVED PRN AND REPOSITIONING ATTENDED TO FOR TOLERABLE PAIN CONTROL. SHE SLEPT INTERMITTENTLY AND DENIED ADDITIONAL NEEDS. CHI IS PATENT AND DRAINING. NO ACUTE CHANGES. WCTM AND REPORT TO DAY RN.
--- NOTE | 2019-05-02 11:12 | NUR ---
Comfort Care Visit: Pt resting in bed with her eyes closed. Pt appears comfortable with no S/S of distress at this time. Family at bedside and report no concerns at this time. Spoke with bedside RN Yahaira and discussed case. No concerns reported at this time. Palliative Care will remain available.
--- NOTE | 2019-05-02 17:40 | NUR ---
Initial spiritual care note: Mrs. Mulligan appears frail. She responded to me in one word answers. She denied pain and declined prayer. Then, she fell to sleep. She appears comfortable and well cared-for by nursing. Grand-daughter at bedside. She tells me family has been present throughout hospitalization. I provided affirmation of love, gentle self-care bereavement counselor, and encouragement. No fears/concerns presented. Pt to return home with hospice tomorrow. I will remain available.
--- NOTE | 2019-05-02 18:25 | NUR ---
SHIFT SUMMARY FAMILY HAS BEEN AT BEDSIDE THROUGHOUT SHIFT. BEDBATH GIVEN EARLIER TODAY AND PT TOLERATED WELL. HAS BEEN DOZING MOST OF DAY EXCEPT LATER THIS AFTERNOON AND REQUIRED MEDICATING FOR PAIN TWICE. ATE ONLY A FEW BITES OF BREAKFAST AND NO LUNCH. DRESSING CHANGED TO COCCY BUT R HIP DRESSING REMAINED IN PLACE DUE TO BEING C/D/I
--- NOTE | 2019-05-03 07:04 | NUR ---
SHIFT SUMMARY PT IS AN 78 Y/O FEMALE, ORIGINALLY ADMITTED FOR A GI BLEED AND CURRENTLY ON COMFORT CARE. PT SLEPT WELL THROUGH THE NIGHT, THOUGH SHE DID OPEN HER EYES TO VOICE AND TOUCH. PT WAS MEDICATED TWICE FOR PAIN WITH PRN ROXANOL. NO S/S OF NAUSEA OR RESPIRATORY DISTRESS. PT'S REMAINED IN THE ROOM THROUGH THE NIGHT. NO ACUTE CHANGES IN PT CONDITION NOTED. WILL CONTINUE TO MONITOR AND TREAT PER EMAR UNTIL HAND OFF TO DAY SHIFT RN.
[2019-05-03] MEDS ORDERED: MORP20L SL (10:21)
[2019-05-03] MEDS ORDERED: ACET325 PO (10:21)
[2019-05-03] MEDS ORDERED: Fentanyl1 EAC4 TOP (10:22)
[2019-05-03] MEDS ORDERED: Haloperidol2 MG/1 ML PO (10:22)
[2019-05-03] MEDS ORDERED: HYOS.125 PO (10:23)
[2019-05-03] MEDS ORDERED: Ativan0.5 MG PO (10:24)
--- NOTE | 2019-05-03 11:01 | NUR ---
DISCHARGE INSTRUCTIONS COMPLETED AND SENT WITH WHEN [facility] CAME TO PICK PT UP. CHANGED HER FENTANYL DRESSING WELL PREMEDICATED FOR THE TRANSPORT HOME. TO [facility] VIA GURNEY.
== END 2019-05-03 10:47 | disposition hospice, home (50) | DRG 811 ==
LOC: ER 11:34 → MEDS 14:04
PROVIDERS: Emergency Medicine; ADMIT Family Medicine
PROC: 30233N1 Transfusion of Nonautologous Red Blood Cells into Peripheral Vein, Percutaneous Approach (ICD-10-PCS; principal; 2019-04-28)
DX: D62 Acute posthemorrhagic anemia (principal); E43 Unspecified severe protein-calorie malnutrition; K92.1 Melena; F01.51 Vascular dementia, unspecified severity, with behavioral disturbance; I69.951 Hemiplegia and hemiparesis following unspecified cerebrovascular disease affecting right dominant side; N39.0 Urinary tract infection, site not specified; G93.40 Encephalopathy, unspecified; K52.9 Noninfective gastroenteritis and colitis, unspecified; I69.319 Unspecified symptoms and signs involving cognitive functions following cerebral infarction; I69.320 Aphasia following cerebral infarction; I12.9 Hypertensive chronic kidney disease with stage 1 through stage 4 chronic kidney disease, or unspecified chronic kidney disease; N18.3 Chronic kidney disease, stage 3 (moderate); E78.5 Hyperlipidemia, unspecified; E03.9 Hypothyroidism, unspecified; B02.9 Zoster without complications; R62.7 Adult failure to thrive; R13.12 Dysphagia, oropharyngeal phase; E86.9 Volume depletion, unspecified; Z51.5 Encounter for palliative care; Z66 Do not resuscitate; Z88.8 Allergy status to other drugs, medicaments and biological substances; Z79.02 Long term (current) use of antithrombotics/antiplatelets; Z79.891 Long term (current) use of opiate analgesic; Z79.899 Other long term (current) drug therapy; Z68.26 Body mass index [BMI] 26.0-26.9, adult
CPT/HCPCS: 36415; 36430; 46600; 71045; 74176; 80048; 80053; 81001; 82272; 85014; 85018; 85025; 85027; 86850; 86900; 86901; 86923; 87077; 87086; 87106; 87186; 93005; 93010; 96365-59; 96366-59; 96368; 99285-25; C9113; J0744; J2270; J2543; J7030; J7050; P9016